=== PATIENT | male | born 1980 | race Caucasian/White ===

== ENCOUNTER → 2019-04-26 | Outpatient (CLI) | payer OTHER | LOC: M SLEEP 20:00 | PROVIDERS: ATTEND Nurse Practitioner Family | DX: R06.83 Snoring (principal) ==

== ENCOUNTER → 2019-07-05 | Outpatient (CLI) | payer OTHER ==
--- NOTE | 2019-07-11 07:07 | SLEEPCENT ---
DATE OF STUDY: 07/05/2019 ORDERED BY: Jen Santos Nocturnal polysomnography was performed for the titration of pressure therapy in this patient with obstructive sleep apnea syndrome and apnea-hypopnea index of 11.6. For testing, the patient was fit with a [employer] Sim[employer] full face mask of medium size, 4 cm of water pressure were applied to the circuit and the lights were extinguished. 7 hours and 54 minutes of data were reviewed. There were 442.5 minutes of sleep identified. Sleep latency was short at 4.5 minutes. Rapid eye movement (REM) latency was normal at 92 minute. Sleep architecture was good with 4 REM cycles. Overall sleep efficiency 95.2%. The patient's electrocardiogram showed a sinus rhythm with an average heart rate of 65 beats per minute. Electroencephalogram (EEG) showed normal waveforms for awake and sleep. Respiratory events were fully palliated with C-PAP at a pressure of +7. IMPRESSION: Obstructive sleep apnea syndrome (G47.33). RECOMMENDATION: Nightly use of pressure therapy at 7 cm of water.
== END ==
LOC: M SLEEP 20:00
PROVIDERS: ATTEND Nurse Practitioner Family
DX: G47.33 Obstructive sleep apnea (adult) (pediatric) (principal)